=== PATIENT | female | born 1995 | race Caucasian/White ===

== ENCOUNTER → 2018-03-29 | Outpatient (CLI) | payer BC ==
--- NOTE | 2018-03-29 12:00 | US ---
EXAMINATION TYPE: US pelvic complete DATE OF EXAM: 03/29/2018 COMPARISON: CT CLINICAL HISTORY: R10.2 Pelvic pain; hypogastric region is area of pain x 2 years; patient stated on oral contraceptives to regulate menstrual period and just changed brands end of February. TECHNIQUE: Transabdominal (TA). Transabdominal sonographic images of the pelvis were acquired. Date of LMP: 02/17/2018 EXAM MEASUREMENTS: Uterus: 5.6 x 5.0 x 2.7 cm Endometrial Stripe: 0.6 cm Right Ovary: 3.1 x 2.7 x 1.2 cm Left Ovary: 3.5 x 2.6 x 2.0cm 1. Uterus: Anteverted 2. Endometrium: unable to correlate thickness with LMP as patient stated started new oral contracept jose elias in February 3. Right Ovary: small follicles 4. Left Ovary: small follicles Spectral, color and waveform Doppler imaging shows good arterial and venous flow within the ovaries ; there is no evidence for ovarian torsion. 5. Bilateral Adnexa: wnl 6. Posterior cul-de-sac: wnl IMPRESSION: 1. Small ovarian follicles.
== END | disposition home or self-care (01) ==
LOC: RADUSWWP 10:53
PROVIDERS: ATTEND Obstetrics & Gynecology
DX: N83.02 Follicular cyst of left ovary (principal); N83.01 Follicular cyst of right ovary
CPT/HCPCS: 76856

== ENCOUNTER → 2020-09-29 | Outpatient (CLI) | payer BC ==
--- NOTE | 2020-09-29 13:17 | US ---
EXAMINATION TYPE: US transvaginal DATE OF EXAM: 09/29/2020 COMPARISON: 03/29/2080 CLINICAL HISTORY: 25-year-old female N91.5 Oligomenorrhea. Pt states LMP in February TECHNIQUE: Transvaginal (TV). Transvaginal sonographic images of the pelvis were acquired. Date of LMP: February FINDINGS: EXAM MEASUREMENTS: Uterus: 6.3 x 2.8 x 3.7 cm Endometrial Stripe: 0.6 cm Right Ovary: 3.7 x 3.1 x 3.3 cm for volume of 19.8 mL Left Ovary: 2.9 x 3.1 x 2.2 cm for volume of 10.6 mL. 1. Uterus: Anteverted and otherwise wnl 2. Endometrium: wnl 3. Right Ovary: Polycystic in appearance. Echogenic area with posterior shadowing= 0.8 x 0.7 x 0.9 c m could represent a small nonspecific calcification follow-up can be considered. 4. Left Ovary: There is follicular change noted. 5. Bilateral Adnexa: wnl 6. Posterior cul-de-sac: wnl IMPRESSION: 1. Possible polycystic right ovary with a volume of 19.8 mL. 2. In addition, there is a 9 mm echogenic and shadowing area within the right ovary that could repres ent a nonspecific calcification. Six-month follow-up to reassess.
== END | disposition home or self-care (01) ==
LOC: RADUSWWP 10:03
PROVIDERS: ATTEND Obstetrics & Gynecology
DX: N91.5 Oligomenorrhea, unspecified (principal)
CPT/HCPCS: 76830

== ENCOUNTER → 2021-04-13 | Outpatient (CLI) | payer BC ==
--- NOTE | 2021-04-13 15:25 | US ---
EXAMINATION TYPE: US pelvic complete DATE OF EXAM: 04/13/2021 COMPARISON: NONE CLINICAL HISTORY: Abnormal findings R93.89. follow up exam of right ovary for calcification, always h as pelvic pain TECHNIQUE: TA. Transabdominal sonographic images of the pelvis were acquired. Date of LMP: 03/20/2021 EXAM MEASUREMENTS: Uterus: 6.7 x 4.4 x 3.3 cm Endometrial Stripe: 0.6 cm Right Ovary: 3.4 x 2.4 x 2.2 cm Left Ovary: 2.5 x 2.1 x 1.9 cm 1. Uterus: Anteverted wnl 2. Endometrium: wnl 3. Right Ovary: 1.0 x 0.8 x 0.6cm, previous size = 0.9 x 0.7 x 0.8cm 4. Left Ovary: wnl 5. Bilateral Adnexa: wnl 6. Posterior cul-de-sac: wnl IMPRESSION: Persistent right ovarian cyst with minimal increase in size. Continued follow-up advised.
== END | disposition home or self-care (01) ==
LOC: RADUSWWP 14:11
PROVIDERS: ATTEND Obstetrics & Gynecology
DX: N83.201 Unspecified ovarian cyst, right side (principal)
CPT/HCPCS: 76856